=== PATIENT | female | born 1960 | race Caucasian/White ===

== ENCOUNTER 2017-11-26 07:43 | Day surgery (SDC) | payer OTHER ==
[~2017-11-26] VITALS: Ht 167.6 cm; Wt 88.5 kg
[~2017-11-26 07:43] MED LIST: PROBIOTIC1 EAC1 PO
--- NOTE | 2017-11-26 09:42 | NUR ---
PT IS ALERT AND ORIENTED. HER WILL ARRIVE SHORTLY. SHE SEEMED PREPARED, BUT DID GET SOMEWHAT EMOTIONAL STAYED AND DEBRIEFED. PT REQUESTED PRAYER, WILL FOLLOW NEEDED
--- NOTE | 2017-11-26 09:53 | NUR ---
11/26/17 0953 Fernanda Arriaga 0949 PATIENT ARRIVES TO PACU AWAKE, BUT DROWSY. RESP EVEN AND UNLABORED, ARRIVES ON 2 LITERS VIA NC, BUT TURNED OFF ON ARRIVAL, ROOM AIR SATS 100%. DENIES PAIN OR NAUSEA.
--- NOTE | 2017-11-27 08:34 | OR ---
[facility] [address], [place] [address] Signed DATE OF OPERATION: 11/26/2017 SURGEON: Elizabeth Velazquez MD COLONOSCOPY REPORT PREOPERATIVE DIAGNOSES: 1. Guaiac-positive stool. 2. History of colonic polyps in her 50s. POSTOPERATIVE DIAGNOSES: 1. Minimal sigmoid diverticulosis. 2. Proximal right colon polyps x2. 3. 4 mm polyps x2 at 50 cm. 4. 4 mm polyp x1 at 10 cm. 5. Moderate external hemorrhoids. PROCEDURE: Colonoscopy with hot biopsy. ESTIMATED BLOOD LOSS: None. INDICATIONS: Seda is a 57-year-old female, who was asked to see me for her initial colonoscopy. She had guaiac positive stool. Also, her sister had colonic polyps removed in her 50s. Otherwise, Seda gives no lower GI complaints. I had met with Seda in the office and I gave her a pamphlet on colonoscopy. We discussed the nature of the test along with the risks including, but not limited to gas bloating, crampy abdominal pain, bleeding, perforation, requiring surgery, and missed diagnosis. We also discussed the need for IV conscious sedation. She had expressed understanding wished to proceed. PROCEDURE NOTE: Seda was taken into our endoscopy suite and placed in the left lateral decubitus position. She was given a total of 10 mg of Versed and 150 mcg of fentanyl to cover the case. It was difficult to keep Seda adequately sedated or advance the scope or she was awake, and move around in pain. Hopefully, she does not have recall of that experience. Nevertheless, she should probably use propofol in the future. Eventually with abdominal compression and the additional sedation, we made our way into the cecum itself. Her prep was quite good. She has a somewhat long redundant tortuous sigmoid Electronically Signed By: ELIZABETH VELAZQUEZ MD 11/27/17 0834 PATIENT NAME: SEDA DUGAN OPERATIVE REPORT DATE OF : 60 REPORT #: [id number] PHYSICIAN: ELIZABETH VELAZQUEZ MD PCP: CHRISTOPH SCHILLING REPORT IS CONFIDENTIAL AND NOT TO BE RELEASED WITHOUT AUTHORIZATION [facility] [address], [place] [address] Signed colon and a little bit of the transverse colon as well. The scope was then slowly withdrawn. We were able to remove the above-mentioned polyps with the hot biopsy forceps. We also noticed a moderate external hemorrhoids. Upon retroflexion of the scope, there was no internal component of the hemorrhoids. After this, the gas was suctioned out. The colonoscope removed. We also noticed that Seda had a few diverticula in the sigmoid colon. After this, the gas was suctioned out and the colonoscope removed. Seda tolerated the procedure quite well, otherwise. RECOMMENDATIONS: I will see Seda back in my office in 7 to 14 days to review her results. She will need colonoscopy every 5 years. She should consider propofol on her next endoscopy. MD RADHIKA Ordaz/MERCEDL /[id number] cc: DAVION Martinez MD Copies: CHRISTOPH SCHILLING ANDREW L MD ~ Electronically Signed By: ELIZABETH VELAZQUEZ MD 11/27/17 0834 PATIENT NAME: SEDA DUGAN OPERATIVE REPORT DATE OF : 60 REPORT #: [id number] PHYSICIAN: ELIZABETH VELAZQUEZ MD PCP: CHRISTOPH SCHILLING REPORT IS CONFIDENTIAL AND NOT TO BE RELEASED WITHOUT AUTHORIZATION
== END 2017-11-26 10:20 | disposition home or self-care (01) ==
LOC: OPS 07:43 → DS 07:43 → OPS 09:00 → DS 10:30 → OPS 10:30
PROVIDERS: Colon & Rectal Surgery
PROC: 0DBE8ZZ Excision of Large Intestine, Via Natural or Artificial Opening Endoscopic (ICD-10-PCS; 2017-11-26)
PROC: 0DBP8ZZ Excision of Rectum, Via Natural or Artificial Opening Endoscopic (ICD-10-PCS; 2017-11-26)
PROC: 0DBF8ZZ Excision of Right Large Intestine, Via Natural or Artificial Opening Endoscopic (ICD-10-PCS; principal; 2017-11-26 09:00)
DX: D12.2 Benign neoplasm of ascending colon (principal); K63.5 Polyp of colon; K62.1 Rectal polyp; K64.4 Residual hemorrhoidal skin tags; K57.30 Diverticulosis of large intestine without perforation or abscess without bleeding; Z86.010 Personal history of colon polyps; Z83.71 Family history of colonic polyps; Z79.899 Other long term (current) drug therapy
CPT/HCPCS: 99153; G0500; J2250; J3010; J7120